=== PATIENT | female | born 1995 | race Caucasian/White ===

== ENCOUNTER → 2021-02-28 16:38 | Outpatient (CLI) | payer OTHER, SELFPAY ==
--- NOTE | 2021-02-28 | FLU_PTH ---
PATIENT: SANDRA PRITCHETT LOC: [facility] U#:[id number] AGE/SX: 29/F ROOM: RE02/28/[address]: Dr. Jb Jessica MD : 1995 BED: DIS: SPEC #: [id number] RECD: 03/01/21 08:50 STATUS: RAMONA ESSENCE #: [id number] ZACHARY: 02/28/21 00:[address]: Jb Jessica DEPT: CYTOLOGY RECD BY: Jas Padilla ENTERED: 03/01/21 08:51 SP TYPE: Fluid OTHR DR: Dr. Jose Suh MD Tissues: A - Thyroid gland, NOS B - Thyroid gland, NOS Procedures: Special Stain Group II Surgery Specimen Level IV Cytospin Fluid HEADER OPERATION: Thyroid biopsy PRE-OP DIAGNOSIS: Thyroid nodule TISSUE SUBMITTED: A ? Right thyroid nodule fluid, B ? Right thyroid nodule x4 slides DIAGNOSIS CYTOLOGY A. Right thyroid nodule fluid for cytology, FNA (cytospin and cell block): Atypical follicular cells of undetermined significance. B. Right thyroid nodule, FNA (smears): Suspicious for follicular neoplasm. Adequate for evaluation. See comment. JESSY:librado 03/02/2021 COMMENT B. A few of the follicular cells show nuclear grooving. The smears also show drying artifact. Correlation with clinical, radiologic findings and appropriate follow up are necessary. CYTOLOGY STUDY Slides are reviewed. CYTOLOGY GROSS A - Received is 40 ml of red cloudy fluid labeled with the patient's name and and designated per the requisition as right thyroid nodule. Submitted for cytology preparation including cell block. B - Received are four smears labeled with the patient's name and designated per the requisition as right thyroid nodule. Submitted for staining. / librado 03/01/2021 TC:5 CPT: 56792, [id number], [id number]
== END ==
PROVIDERS: PCP Family Medicine; Referring Provider Surgery; Visit Provider Surgery
DX: E04.1 Nontoxic single thyroid nodule (principal)
CPT/HCPCS: 88108; 88305; 88313